=== PATIENT | male | born 1985 | race African-American/Black ===

== ENCOUNTER 2016-04-27 02:57 | Emergency (ER) | payer MEDICAID ==
[~2016-04-27] VITALS: Ht 175.3 cm; Wt 82.0 kg
[2016-04-27] MEDS ORDERED: ALBUTEROL (0.083%) 2.5MG/3ML NEB HHN STA (03:15)
[2016-04-27] MEDS ORDERED: IPRATROPIUM BROMIDE (0.02%) 0.5MG/2.5ML NEB HHN STA (03:15)
[2016-04-27] MEDS ORDERED: PREDNISONE 20MG TABLET PO STA (03:15)
[2016-04-27 03:26] VITALS: BP 140/98
[2016-04-27] MEDS ORDERED: ALBUTEROL (0.5%) 2.5MG/0.5ML NEB HHN ONE (03:40)
== END 2016-04-27 05:47 | disposition home or self-care (01) ==
LOC: ER 02:59
DX: J45.901 Unspecified asthma with (acute) exacerbation (principal); I10 Essential (primary) hypertension; F12.10 Cannabis abuse, uncomplicated; J44.9 Chronic obstructive pulmonary disease, unspecified
CPT/HCPCS: 94640; 99283; J7512; J7611; Z7610